=== PATIENT | female | born 1970 | race Caucasian/White ===

== ENCOUNTER 2017-09-05 13:41 | Emergency (ER) | payer OTHER ==
[2017-09-05 13:48] VITALS: RESP 18; TEMP 98.1
--- NOTE | 2017-09-05 14:11 | EDPHY ---
H & P Stated Complaint: Dog pulled on leash pulled pt down;R wrist,R ribs,R cheek injuries,no LOC Time Seen by Provider: 09/05/17 13:49 HPI/ROS: CHIEF COMPLAINT: Right hand pain, right facial injury, right rib pain post mechanical fall HISTORY OF PRESENT ILLNESS: 47-year-old female arrives via private vehicle complaining of right facial injury, right 5th metacarpal and finger injury, right rib pain after she was walking her 100+ lb dog with the leash wrapped around her body and the dog ran suddenly causing her to fall. Occurred shortly prior to arrival. This is a mechanical incident only not a syncopal episode. No loss of consciousness. No amnesia. No alcohol or drug use. No anticoagulant use. No dyspnea. Reproducible pain to the ribs with inspiration , palpation and reproducible pain to the right hand with palpation range of motion. No visual acuity changes. Prior orthopedic care with Dr. Kristofer Olivares REVIEW OF SYSTEMS: A ten point review of systems was performed and is negative with the exception of the items mentioned in the HPI PAST MEDICAL/SURGICAL HISTORY: no anticoagulant use, no relevant medical/ surgical history SOCIAL HISTORY: denies alcohol use at time of incident PHYSICAL EXAM 1) GENERAL: Well-developed, well-nourished, alert and oriented. Appears uncomfortable. Answering questions appropriately. 2) HEAD: Normocephalic, atraumatic 3) HEENT: Pupils equal, round, reactive to light bilaterally. Negative Horners. Nasopharynx, oropharynx, clear. Right zygomatic arch erythema in abrasion with no crepitus, no deformity no depression. No deformity or angulation of nose. No septal hematoma. No rhinorrhea. No oral trauma. Ears bilaterally with normal tympanic membranes. No hemotympanum. No fluid or blood in the external auditory canal. No raccoon eyes. No Garza sign. Teeth are normally aligned with no gross malocclusion, TMJ bilaterally nontender, facial bones nontender including the zygomatic arch, maxilla mandible. 4) NECK: No cervical collar is on. Posterior cervical spine is nontender, no stepoff, no effusion. Full range of motion which does not elicit any midline cervical spine pain, no posterior midline tenderness, no step-off. 5) LUNGS: Clear to auscultation bilaterally, no wheezes, no rhonchi, no retractions. No obvious signs of trauma. No chest wall pain. No flaring, no grunting. Moving symmetrically. No crepitus. 6) HEART: Regular rate and rhythm, tender to palpation right ribs anterior axillary line at the level of the nipple with no visible trauma. No crepitus. 7) ABDOMEN: No guarding, no rebound, no focal tenderness, no peritoneal signs, no signs of trauma, no ecchymosis 8) MUSCULOSKELETAL: Right upper extremity: Tender to palpation 5th metacarpal and phalanx. No deformity no angulation. Normal cascading of digit. Moving all extremities, no focal areas of tenderness, no obvious trauma. 9) BACK: No midline vertebral tenderness, no fluctuance, no step-off, no obvious trauma, no visual or palpable abnormality. 10) SKIN: No laceration. No abrasion DIFFERENTIAL DIAGNOSIS: [in no particular order including but but not limited to fracture, sprain, strain, pneumothorax, hemothorax - Personal History LMP (Females 10-55): Post Menopausal Current Tetanus Diphtheria and Acellular Pertussis (TDAP): Yes - Medical/Surgical History Other PMH: healthy - Social History Smoking Status: Former smoker Constitutional: Initial Vital Signs Temperature (C) 36.7 C 09/05/17 13:45 Heart Rate 94 09/05/17 13:45 Respiratory Rate 18 09/05/17 13:45 Blood Pressure 102/87 H 09/05/17 13:45 O2 Sat (%) 96 09/05/17 13:45 O2 Delivery Mode Room Air Allergies/Adverse Reactions: No Known Allergies Allergy (Unverified 09/05/17 13:48) Home Medications: Medication Instructions Recorded Bioidentical Hormones 09/05/17 Hydrocodone/APAP 5/325 [[place] 1 tab PO Q6 PRN #10 tab 09/05/17 5/325 (RX)] buPROPion [Wellbutrin] 100 mg PO 09/05/17 Medical Decision Making - Diagnostics Imaging Results: Imaging Impressions Hand X-Ray 09/05/17 13:59 Impression: No acute osseous findings. Images reviewed by myself ED Course/Re-evaluation: Care of patient under supervision of secondary supervising physician Dr Staples . Regarding the patient's right facial injury I think that intracranial hemorrhage , facial fracture, skull fracture less than likely in this patient. I do not think that the benefits of CT imaging outweigh the risks in this patient with few risk factors for intracranial hemorrhage. Regarding her right rib pain, she has clear breath sounds bilaterally, maintain normal saturations. Doubt pneumothorax. I do not think that specific imaging for the ribs currently indicated. Nonetheless I have offered this and she is in agreement she does not feel is indicated. We have discussed pain control however and incentive spirometry will be given to the patient. Regarding her right hand pain there is a cortical lucency on a single view in the location of the patient's pain which may represent acute fracture. This area has been splinted with ulnar gutter splint and to follow up with her orthopedic surgeon Dr. Olivares. Given usual and customary orthopedic precautions and instructions. - Data Points Medications Given: Discontinued Medications Oxycodone/Acetaminophen (Percocet 5/325) 1 tab PO EDNOW ONE Stop: 09/05/17 14:36 Last Admin: 09/05/17 14:47 Dose: 1 tab Departure - Departure Disposition: Home, Routine, Self-Care Clinical Impression: Rib pain on right side Head injury due to trauma Qualifiers: Encounter type: initial encounter Qualified Code(s): S09.90XA - Unspecified injury of head, initial encounter Right hand fracture Qualifiers: Encounter type: initial encounter Fracture type: closed Qualified Code(s): S62.91XA - Unspecified fracture of right wrist and hand, initial encounter for closed fracture Condition: Good Instructions: Hand Fracture (ED), Head Injury (ED), Rib Contusion (ED) Additional Instructions: ALTHOUGH THERE IS NO EVIDENCE OF SERIOUS HEAD INJURY AT THIS TIME, DELAYED SIGNS CAN APPEAR 24 TO 48 HOURS AFTER INJURY. WE RECOMMEND THAT YOU DESIGNATE A FRIEND OR FAMILY MEMBER TO OBSERVE YOU OVER THE NEXT FEW DAYS TO ENSURE THAT YOUR CONDITION IS PROGRESSING NORMALLY. PLEASE RETURN TO THE EMERGENCY DEPARTMENT (ED) IMMEDIATELY IF YOU HAVE INCREASED HEADACHE, PERSISTENT HEADACHE , VOMITING, WEAKNESS, CONFUSION OR VISUAL PROBLEMS. WE RECOMMEND THAT YOU DO NOT RESUME CONTACT SPORTS OR ACTIVITIES THAT TAKE COORDINATION OR BALANCE SUCH SKIING OR RIDING A BICYCLE UNTIL CLEARED TO DO SO BY YOUR DOCTOR OR BY A NEUROLOGIST. Referrals: Kristofer Olivares MD [Medical Doctor] - As per Instructions Prescriptions: Hydrocodone/APAP 5/325 [[place] 5/325 (RX)] 1 tab PO Q6 PRN #10 tab PRN Reason: Pain, Severe
[2017-09-05] MEDS ORDERED: OXYCODONE/APAP 5/325 TAB PO ONE (14:35)
[2017-09-05 14:52] VITALS: BP 123/74; PULSE 71; O2SAT 97
== END 2017-09-05 14:53 | disposition home or self-care (01) ==
DX: S62.91XA Unspecified fracture of right hand, initial encounter for closed fracture (principal); S09.90XA Unspecified injury of head, initial encounter; S29.9XXA Unspecified injury of thorax, initial encounter; Z87.891 Personal history of nicotine dependence; W18.39XA Other fall on same level, initial encounter; Y99.8 Other external cause status; Y93.01 Activity, walking, marching and hiking
CPT/HCPCS: A4565